=== PATIENT | female | born 1980 | race African-American/Black ===

== ENCOUNTER 2016-12-09 23:49 | Outpatient (CLI) | payer BC ==
[~2016-12-09] VITALS: Ht 162.6 cm
[2016-12-10] MEDS ORDERED: PRENATAL 1+1)(P1 TAB PO (02:32)
== END 2016-12-10 03:00 | disposition disaster alternative care site (69) ==
LOC: GOBM 23:49 → GOBS 23:49 → GOBM 12-10 03:00
DX: O47.03 False labor before 37 completed weeks of gestation, third trimester (principal); Z3A.33 33 weeks gestation of pregnancy
CPT/HCPCS: G0463; J2001; J7120